=== PATIENT | female | born 1995 | race Caucasian/White ===

== ENCOUNTER 2021-12-15 20:02 | Emergency (ER) | payer OTHER ==
[~2021-12-15] VITALS: Ht 170.2 cm; Wt 68.0 kg
[2021-12-15 21:26] VITALS: BP 128/69
--- NOTE | 2021-12-16 00:45 | NUR ---
SEEN AND EXAMINED BY ROSALINDA
[2021-12-16 01:09] VITALS: BP 128/69
--- NOTE | 2021-12-16 01:09 | NUR ---
Patient discharged with v/s stable. Written and verbal after care instructions given and explained. Patient verbalized understanding. Ambulatory with steady gait. All questions addressed prior to discharge. Advised to follow up with PMD.
== END 2021-12-16 01:09 | disposition home or self-care (01) ==
LOC: MED 20:02
DX: F07.81 Postconcussional syndrome (principal); R51.9 Headache, unspecified; V49.88XA Car occupant (driver) (passenger) injured in other specified transport accidents, initial encounter; Y93.89 Activity, other specified; Y92.89 Other specified places as the place of occurrence of the external cause; Y99.8 Other external cause status
CPT/HCPCS: 99281

== ENCOUNTER 2021-12-17 09:12 | Emergency (ER) | payer OTHER ==
[~2021-12-17] VITALS: Ht 170.2 cm; Wt 68.0 kg
--- NOTE | 2021-12-17 09:20 | NUR ---
PT TO WAIT IN LOBBY.
[2021-12-17 09:26] VITALS: BP 110/74
--- NOTE | 2021-12-17 09:27 | NUR ---
DR. JACKSON WITH PT IN TRIAGE FOR FURTHER EVALUATION.
--- NOTE | 2021-12-17 09:28 | NUR ---
PT STATES SHE IS UNABLE TO PROVIDE UA SAMPLE AT THIS TIME. ROSALINDA MADE AWARE.
--- NOTE | 2021-12-17 09:30 | NUR ---
PT TAKEN TO XR VIA W/C.
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
== END 2021-12-17 11:00 | disposition home or self-care (01) ==
LOC: MED 09:12
DX: S06.0X0A Concussion without loss of consciousness, initial encounter (principal); S20.20XA Contusion of thorax, unspecified, initial encounter; S10.93XA Contusion of unspecified part of neck, initial encounter; J45.909 Unspecified asthma, uncomplicated; V89.2XXA Person injured in unspecified motor-vehicle accident, traffic, initial encounter; Y93.89 Activity, other specified; Y92.89 Other specified places as the place of occurrence of the external cause; Y99.8 Other external cause status
CPT/HCPCS: 70450; 71046; 72050; 81002; 81025; 99284